=== PATIENT | female | born 1940 | race Caucasian/White ===

== ENCOUNTER 2021-02-20 06:53 | Day surgery (SDC) | payer MEDICARE, OTHER, SELFPAY ==
[2021-02-14 13:50] VITALS: BMI 33.2
--- NOTE | 2021-02-15 08:16 | MHC.SHP ---
Pre-Procedural Eval Section A Date of Service: 02/15/21 The patient is an INPATIENT: No Changes since office visit: No Cold of Flu in the past 2 weeks, No New Medical Problems, No Changes in Medication and No Patient answered all questions The History & Physical has been completed within 30 days and I have reviewed it.: Yes Section B Chief Complaint: Cataract Right Eye Allergies: Allergies Allergy/AdvReac Type Severity Reaction Status Date / Time No Known Allergies Allergy Verified 02/14/21 13:57 Plan Diagnosis/Plan: Unchanged I have reviewed the history and physical and performed a pertinent physical examination on my patient. No changes have occurred unless specified.
[2021-02-20 07:40] VITALS: BP 149/68; PULSE 70; RESP 16; TEMP 36.7; O2SAT 95
[2021-02-20] MEDS: Tetracaine HCl/PF 0.5% Oph Sol 4 ML DROPS 1 DROP EYE-RIGHT (07:43)
[2021-02-20] MEDS: Tropicamide 1 % Ophth Sol 3 ML BTL 1 DROP EYE-RIGHT ×3 (07:43→07:51)
[2021-02-20] MEDS: Lactated Ringers 500 ML 20 ML IVCONT (07:44)
[2021-02-20 07:45] LABS: Glucose, Whole Blood 225 mg/dL (60-115)
[2021-02-20] MEDS: Phenylephrine HCL 2.5% Oph SoL 2 ML BOTTLE 1 DROP EYE-RIGHT ×3 (07:48→07:53)
--- NOTE | 2021-02-20 08:06 | HO.ANESPROP2 ---
[facility] Past Medical History Medical History Anxiety COPD (chronic obstructive pulmonary disease) Diabetes Elevated cholesterol Essential tremor HTN (hypertension) Hypothyroid Osteoarthritis Sleep apnea Family History Family history of problems with anesthesia: No Surgical History Surgical History H/O colonoscopy History of Problems with Anesthesia: No Social History Social History Patient Tobacco Use Status: Tobacco use Unknown Advance Directives Information Provided: Yes (informational brochure mailed to patient) Advance Directives on File: No Meds Allergies Allergy/AdvReac Type Severity Reaction Status Date / Time No Known Allergies Allergy Verified 02/14/21 13:57 Active Medications: Current Medications Lactated Ringer's (Lr) 500 mls @ 20 mls/hr IVCONT .Q24H CHILO Last Admin: 02/20/21 07:44 Dose: 20 mls/hr Documented by: Povidone Iodine (Povidone Iodine 5 % Ophth Soln 30 Ml Bottle) 1 appl EYE-RIGHT PREOP PRN PRN Reason: Pre-Op Surgical Implant Prophy Home Medications Medication Instructions Recorded Confirmed Last Taken Type albuterol sulfate 90 mcg/actuation 2 puff INHALATION Q4-6H PRN 02/14/21 02/14/21 Unknown History aerosol inhaler (ProAir HFA) escitalopram oxalate 10 mg tablet 1 tab PO DAILY 02/14/21 02/14/21 Unknown History ezetimibe 10 mg-simvastatin 40 mg 1 tab PO DAILY 02/14/21 02/14/21 Unknown History tablet glyburide 2.5 mg tablet 1 tab PO QAM 02/14/21 02/14/21 Unknown History hydrochlorothiazide 25 mg tablet 1 tab PO DAILY 02/14/21 02/14/21 Unknown History levothyroxine 100 mcg tablet 1 tab PO QAM 02/14/21 02/14/21 Unknown History metformin 500 mg tablet 1 tab PO TID 02/14/21 02/14/21 Unknown History propranolol 160 mg capsule,24 1 cap PO DAILY 02/14/21 02/14/21 Unknown History hr,extended release umeclidinium 62.5 mcg/actuation 1 puff INHALATION DAILY 02/14/21 02/14/21 Unknown History blister powder for inhalation (Incruse Ellipta) valsartan 40 mg tablet 1 tab PO QAM 02/14/21 02/14/21 Unknown History Exam Exam Date and Time: February 20, 2021 0806 Height,Weight and Vital Signs: Height 5 ft 4.75 in Weight 89.811 kg Last Vital Signs Temp 98.0 F 02/20/21 07:40 Pulse 70 02/20/21 07:40 Resp 16 02/20/21 07:40 BP 149/68 H 02/20/21 07:40 Pulse Ox 95 02/20/21 07:40 Pertinent Lab Results Pertinent Lab Results: Laboratory Tests 02/20/21 07:42 POC Glucose 225 H Airway Mallampati Class: II TM Dist: >3cm Neck ROM: Limited Assessment and Plan Assessment Anesthesia Assessment: Anesthesia Plan Discussed and Chart Reviewed Final Anesthetic Review Family History of Problems with Anesthesia: No History of Problems with Anesthesia: No NPO: Yes ASA Class: III Final Preanesthetic Review: No Changes in Pt Med Stat, Meds/Allgs Chart Reviewed, Consent Obtained/Reviewed and Anes Risks/Benef Reviewed Patient Risk: Intermediate Procedure Risk: Low Assessment/Block/Sedation in SS: Assess/Block/Sedation-SS Anesthetic Plan Anesthetic Plan: MAC: Disposition: Standard PACU
--- NOTE | 2021-02-20 08:39 | HO.PNOPHT ---
Ophthalmology Procedure Procedure Date of Service: 02/20/21 Ophthalmology Viscoelastic: Healon Duet Dual Pack Pro Ophthalmology Lenses: TECNIS [id number] (20.5) Procedure Notes: PREOPERATIVE DIAGNOSIS: Decreased visual acuity right eye secondary to cataract POSTOPERATIVE DIAGNOSIS: Same PROCEDURE: Right cataract extraction with intraocular lens insertion SURGEON: Artemio Parker M.D. ANESTHESIA: Topical/MAC ESTIMATED BLOOD LOSS: None COMPLICATIONS: None After obtaining informed consent, the patient was brought to the operating room suite and placed in the supine position. After adequate sedation per anesthesia, topical drops of Tetracaine were given to the right eye. The eye was then prepped and draped in the usual sterile fashion. The operating room microscope was then positioned over the operative eye and a lid speculum placed. A paracentesis was created. Viscoelastic was then instilled into the anterior chamber. A three plane incision was then created temporally, utilizing a 2.85 mm keratome. Capsulotomy forceps were then utilized to create a circular tear capsulotomy. Hydrodissection and hydrodelineation were carried out until adequate mobilization of the nucleus occurred. Phacoemulsification was then utilized to remove the dense central nucleus followed by removal of the cortical material utilizing the automated aspiration irrigation unit. Viscoelastic was instilled into the posterior capsular bag followed by placement of a posterior chamber intraocular lens without difficulty. The residual Viscoelastic was then removed utilizing the automated IA machine. The wound was checked and found to be watertight. The patient tolerated the procedure well and the lid speculum was removed. Intracameral injection of Vigamox 0.1 mL followed by a subtenon injection of Kenalog-40 0.2 mL were administered. The patient will be seen in the a.m.
[2021-02-20 09:04] VITALS: BP 170/72; PULSE 62; RESP 16; TEMP 36.1; O2SAT 94
[2021-02-20] MEDS: Ondansetron ODT 4 MG TAB.RAPDIS TRANSLINGU (09:24)
--- NOTE | 2021-02-20 09:39 | PC.NURSE ---
patient medicated for nausea with good effect. tolerated po prior to discharged
== END 2021-02-20 09:40 | disposition home or self-care (01) ==
PROVIDERS: PCP Internal Medicine; Visit Provider Ophthalmology
PROC: (CPT 66985; principal; 2021-02-20 08:40)
DX: H25.11 Age-related nuclear cataract, right eye (principal); H52.4 Presbyopia; G47.33 Obstructive sleep apnea (adult) (pediatric); E03.9 Hypothyroidism, unspecified; I10 Essential (primary) hypertension; E11.9 Type 2 diabetes mellitus without complications; Z79.84 Long term (current) use of oral hypoglycemic drugs; Z79.899 Other long term (current) drug therapy; Z88.0 Allergy status to penicillin; Z87.891 Personal history of nicotine dependence
CPT/HCPCS: 66984; 82947; J3010; J3300; V2632

== ENCOUNTER 2021-03-06 08:53 | Day surgery (SDC) | payer MEDICARE, OTHER, SELFPAY ==
[2021-02-14 14:01] VITALS: BMI 33.2
--- NOTE | 2021-03-01 13:24 | MHC.SHP ---
Pre-Procedural Eval Section A Date of Service: 03/01/21 The patient is an INPATIENT: No Changes since office visit: No Cold of Flu in the past 2 weeks, No New Medical Problems, No Changes in Medication and No Patient answered all questions The History & Physical has been completed within 30 days and I have reviewed it.: Yes Section B Chief Complaint: Cataract Left Eye Allergies: Allergies Allergy/AdvReac Type Severity Reaction Status Date / Time No Known Allergies Allergy Verified 02/14/21 13:57 Plan Diagnosis/Plan: Unchanged I have reviewed the history and physical and performed a pertinent physical examination on my patient. No changes have occurred unless specified.
--- NOTE | 2021-03-03 10:04 | HO.ANESPROP2 ---
Documented by User: Rona Talbot NP 03/03/21 10:08 HPI - Anesthesia Eval Consult details Narrative: 81yo F for Left Cataract Extraction IOL Insertion PCP cleared Right eye 02/20/21 with MAC: Fent 50 PMFSH Past Medical History Medical History Anxiety COPD (chronic obstructive pulmonary disease) Diabetes Elevated cholesterol Essential tremor HTN (hypertension) Hypothyroid Osteoarthritis Sleep apnea Family History Family history of problems with anesthesia: No Surgical History Surgical History H/O colonoscopy History of Problems with Anesthesia: No Social History Social History Patient Tobacco Use Status: Tobacco use Unknown Advance Directives Information Provided: Yes (informational brochure mailed) Advance Directives on File: No Meds Allergies Allergy/AdvReac Type Severity Reaction Status Date / Time No Known Allergies Allergy Verified 02/14/21 13:57 Home Medications Medication Instructions Recorded Confirmed Last Taken Type albuterol sulfate 90 mcg/actuation 2 puff INHALATION Q4-6H PRN 02/14/21 02/14/21 Unknown History aerosol inhaler (ProAir HFA) escitalopram oxalate 10 mg tablet 1 tab PO DAILY 02/14/21 02/14/21 03/06/21 History ezetimibe 10 mg-simvastatin 40 mg 1 tab PO DAILY 02/14/21 02/14/21 Unknown History tablet glyburide 2.5 mg tablet 1 tab PO QAM 02/14/21 02/14/21 Unknown History hydrochlorothiazide 25 mg tablet 1 tab PO DAILY 02/14/21 02/14/21 Unknown History levothyroxine 100 mcg tablet 1 tab PO QAM 02/14/21 02/14/21 03/06/21 History metformin 500 mg tablet 1 tab PO TID 02/14/21 02/14/21 Unknown History propranolol 160 mg capsule,24 1 cap PO DAILY 02/14/21 02/14/21 Unknown History hr,extended release umeclidinium 62.5 mcg/actuation 1 puff INHALATION DAILY 02/14/21 02/14/21 03/06/21 History blister powder for inhalation (Incruse Ellipta) valsartan 40 mg tablet 1 tab PO QAM 02/14/21 02/14/21 Unknown History Exam Exam Date and Time: March 03, 2021 1004 Height,Weight and Vital Signs: Height 5 ft 4.75 in Weight 89.811 kg Assessment and Plan Assessment Anesthesia Assessment: Chart Reviewed Final Anesthetic Review Family History of Problems with Anesthesia: No History of Problems with Anesthesia: No Documented by User: Kosta Vides MD 03/06/21 10:28 [facility] Past Medical History Medical History Anxiety COPD (chronic obstructive pulmonary disease) Diabetes Elevated cholesterol Essential tremor HTN (hypertension) Hypothyroid Osteoarthritis Sleep apnea Surgical History Surgical History H/O colonoscopy Social History Social History Patient Tobacco Use Status: Tobacco use Unknown Advance Directives Information Provided: Yes (informational brochure mailed) Advance Directives on File: No Meds Allergies Allergy/AdvReac Type Severity Reaction Status Date / Time No Known Allergies Allergy Verified 02/14/21 13:57 Home Medications Medication Instructions Recorded Confirmed Last Taken Type albuterol sulfate 90 mcg/actuation 2 puff INHALATION Q4-6H PRN 02/14/21 02/14/21 Unknown History aerosol inhaler (ProAir HFA) escitalopram oxalate 10 mg tablet 1 tab PO DAILY 02/14/21 02/14/21 03/06/21 History ezetimibe 10 mg-simvastatin 40 mg 1 tab PO DAILY 02/14/21 02/14/21 Unknown History tablet glyburide 2.5 mg tablet 1 tab PO QAM 02/14/21 02/14/21 Unknown History hydrochlorothiazide 25 mg tablet 1 tab PO DAILY 02/14/21 02/14/21 Unknown History levothyroxine 100 mcg tablet 1 tab PO QAM 02/14/21 02/14/21 03/06/21 History metformin 500 mg tablet 1 tab PO TID 02/14/21 02/14/21 Unknown History propranolol 160 mg capsule,24 1 cap PO DAILY 02/14/21 02/14/21 Unknown History hr,extended release umeclidinium 62.5 mcg/actuation 1 puff INHALATION DAILY 02/14/21 02/14/21 03/06/21 History blister powder for inhalation (Incruse Ellipta) valsartan 40 mg tablet 1 tab PO QAM 02/14/21 02/14/21 Unknown History Exam Airway Mallampati Class: II TM Dist: >3cm Neck ROM: Full Denture: Upper and Lower Heart: [id number] Lungs: cta b/l Assessment and Plan Final Anesthetic Review NPO: Yes ASA Class: III Final Preanesthetic Review: No Changes in Pt Med Stat, Meds/Allgs Chart Reviewed, Consent Obtained/Reviewed and Anes Risks/Benef Reviewed Patient Risk: Intermediate Procedure Risk: Low Assessment/Block/Sedation in SS: Assess/Block/Sedation-SS Anesthetic Plan Anesthetic Plan: MAC: and Agree w/ Assess. and Plan Disposition: Standard PACU
[2021-03-06 09:58] LABS: Glucose, Whole Blood 237 mg/dL (60-115)
[2021-03-06 10:28] VITALS: BP 154/78; PULSE 69; RESP 16; TEMP 36.5; O2SAT 95
--- NOTE | 2021-03-06 11:05 | HO.PNOPHT ---
Ophthalmology Procedure Procedure Date of Service: 03/06/21 Ophthalmology Viscoelastic: Healon Duet Dual Pack Pro Ophthalmology Lenses: TECNIS [id number] (21.5) Procedure Notes: PREOPERATIVE DIAGNOSIS: Decreased visual acuity left eye secondary to cataract POSTOPERATIVE DIAGNOSIS: Same PROCEDURE: Left cataract extraction with intraocular lens insertion SURGEON: Artemio Parker M.D. ANESTHESIA: Topical/MAC ESTIMATED BLOOD LOSS: None COMPLICATIONS: None After obtaining informed consent, the patient was brought to the operation room suite and placed in the supine position. After adequate sedation per anesthesia, topical drops of Tetracaine were given to the left eye. The eye was then prepped and draped in the usual sterile fashion. The operating room microscope was then positioned over the operative eye and a lid speculum placed. A paracentesis was created. Viscoelastic was then instilled into the anterior chamber. A three plane incision was then created temporally, utilizing a 2.85 mm keratome. Capsulotomy forceps were then utilized to create a circular tear capsulotomy. Hydrodissection and hydrodelineation were carried out until adequate mobilization of the nucleus occurred. Phacoemulsification was then utilized to remove the dense central nucleus followed by removal of the cortical material utilizing the automated aspiration irrigation unit. Viscoat elastic was instilled into the posterior capsular bag followed by placement of a posterior chamber intraocular lens without difficulty. The residual Viscoat elastic was then removed utilizing the automated IA machine. The wound was check and found to be watertight. The patient tolerated the procedure well and the lid speculum was removed. Intracameral injection of Vigamox 0.1 mL followed by a subtenon injection of Kenalog-40 0.2 mL were administered. The patient will be seen in the a.m.
[2021-03-06 11:30] VITALS: BP 155/79; PULSE 65; RESP 18; TEMP 36.6; O2SAT 96
== END 2021-03-06 11:48 | disposition home or self-care (01) ==
PROVIDERS: PCP Internal Medicine; Visit Provider Ophthalmology
PROC: (CPT 66985; principal; 2021-03-06 11:20)
DX: H25.12 Age-related nuclear cataract, left eye (principal); H52.4 Presbyopia; Z83.511 Family history of glaucoma; Z82.1 Family history of blindness and visual loss; E03.9 Hypothyroidism, unspecified; J44.9 Chronic obstructive pulmonary disease, unspecified; G47.33 Obstructive sleep apnea (adult) (pediatric); G25.0 Essential tremor; I10 Essential (primary) hypertension; E11.9 Type 2 diabetes mellitus without complications; Z79.84 Long term (current) use of oral hypoglycemic drugs; Z79.51 Long term (current) use of inhaled steroids; Z79.899 Other long term (current) drug therapy; Z99.89 Dependence on other enabling machines and devices; Z87.891 Personal history of nicotine dependence
CPT/HCPCS: 66984; 82947; J2250; J3300; V2632